=== PATIENT | female | born 2000 | race African-American/Black ===

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

== ENCOUNTER 2020-01-19 17:12 | Emergency (ER) | payer MEDICAID, SELFPAY | END 2020-01-19 20:20 | disposition home or self-care (01) | LOC: ERS 17:12 | DX: O9A.212 Injury, poisoning and certain other consequences of external causes complicating pregnancy, second trimester (principal); S00.81XA Abrasion of other part of head, initial encounter; F41.9 Anxiety disorder, unspecified; F31.9 Bipolar disorder, unspecified; Y04.8XXA Assault by other bodily force, initial encounter ==

== ENCOUNTER 2020-04-26 13:00 | Day surgery (SDC) | payer OTHER ==
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
[2020-04-26 13:31] VITALS: BMI 41.3
[2020-04-26] MEDS ORDERED: hydrALAZINE 20 MG/ML VIAL SLOW IVP PRN (14:05)
[2020-04-26] MEDS ORDERED: Acetaminophen 500 MG TAB PO SCH (14:15)
[2020-04-26] MEDS ORDERED: Promethazine HCl 25 MG/ML VIAL IM SCH (14:45)
[2020-04-26] MEDS ORDERED: Morphine 4 MG/ML VIAL IM SCH (14:45)
== END 2020-04-26 16:10 | disposition home or self-care (01) ==
LOC: L&D/OP 13:00
PROVIDERS: ATTEND Obstetrics & Gynecology
DX: O26.893 Other specified pregnancy related conditions, third trimester (principal); R10.2 Pelvic and perineal pain; O34.219 Maternal care for unspecified type scar from previous cesarean delivery; O09.293 Supervision of pregnancy with other poor reproductive or obstetric history, third trimester; Z3A.34 34 weeks gestation of pregnancy
CPT/HCPCS: 76815; 96372; 99282; J2270; J2550

== ENCOUNTER 2022-03-20 18:42 | Emergency (ER) | payer OTHER ==
[2022-03-20] MEDS ORDERED: Acetaminophen 500 MG TAB ONE (19:35)
[2022-03-20] MEDS ORDERED: Lidocaine 1% PF 5 ML VIAL ONE ×2 (20:15→20:36)
[2022-03-20] MEDS ORDERED: Boostrix 0.5 ML (Tdap) VIAL ONE (20:15)
== END 2022-03-20 20:59 | disposition home or self-care (01) ==
LOC: ERS 18:42
DX: O9A.212 Injury, poisoning and certain other consequences of external causes complicating pregnancy, second trimester (principal); S67.192A Crushing injury of right middle finger, initial encounter; S67.194A Crushing injury of right ring finger, initial encounter; Z23 Encounter for immunization; W23.0XXA Caught, crushed, jammed, or pinched between moving objects, initial encounter
CPT/HCPCS: 11750; 90471; 90715

== ENCOUNTER 2023-06-20 22:34 | Emergency (ER) | payer OTHER ==
[2023-06-20] MEDS ORDERED: Ketorolac Tromethamine 30 MG/ML VIAL ONE (23:00)
== END 2023-06-20 23:48 | disposition home or self-care (01) ==
LOC: ERS 22:34
DX: R29.898 Other symptoms and signs involving the musculoskeletal system (principal); R51.9 Headache, unspecified
CPT/HCPCS: 96372; 99283; J1885

== ENCOUNTER 2023-06-22 15:14 | Emergency (ER) | payer OTHER ==
[2023-06-22] MEDS ORDERED: Ondansetron ODT 4 MG TAB ONE (16:31)
[2023-06-22 17:23] LABS: SARS-CoV-2 NAA Rapid Test Not Detected (NotDetected)
== END 2023-06-22 17:30 | disposition home or self-care (01) ==
LOC: ERS 15:14
DX: R11.2 Nausea with vomiting, unspecified (principal); G43.909 Migraine, unspecified, not intractable, without status migrainosus; Z20.822 Contact with and (suspected) exposure to COVID-19
CPT/HCPCS: 99284; Q0162

== ENCOUNTER 2023-06-28 22:26 | Emergency (ER) | payer OTHER ==
[2023-06-28] MEDS ORDERED: Ketorolac Tromethamine 30 MG/ML VIAL ONE (23:29)
== END 2023-06-29 01:46 | disposition home or self-care (01) ==
LOC: ERS 22:26
DX: G43.909 Migraine, unspecified, not intractable, without status migrainosus (principal); F17.290 Nicotine dependence, other tobacco product, uncomplicated
CPT/HCPCS: 96372; 99283; J1885

== ENCOUNTER 2023-10-02 10:00 | Emergency (ER) | payer SELFPAY ==
[2023-10-02] MEDS ORDERED: Metoclopramide HCl 10 MG TAB ONE (11:36)
[2023-10-02 12:25] LABS: Bacteria/HPF None Seen HPF (None Seen); Bilirubin Negative (Negative); Blood, Urine Negative (Negative); CAUTI Indications for Culture Pregnancy; Clarity Clear (Clear); Glucose, Urine (Dipstick) Normal (Negative); Ketone, Urine Negative (Negative); Leukocyte Negative Leu/uL (Negative); Nitrite Negative (Negative); Protein, Urine (Dipstick) 30 mg/dL (Neg-Trace); RBC/HPF 0-3 HPF (0-3); Specific Gravity, Urine 1.041 (1.002-1.036); WBC/HPF 0-3 HPF (0-3)
[2023-10-02 12:28] LABS: Urine Culture Reflex Yes Yes
== END 2023-10-02 18:41 | disposition left against medical advice (07) ==
LOC: ERS 10:00
DX: O99.891 Other specified diseases and conditions complicating pregnancy (principal); R10.2 Pelvic and perineal pain; O99.331 Smoking (tobacco) complicating pregnancy, first trimester; F17.290 Nicotine dependence, other tobacco product, uncomplicated; Z3A.01 Less than 8 weeks gestation of pregnancy
CPT/HCPCS: 36415; 76801; 81001; 84702; 87086